=== PATIENT | female | born 1945 | race Caucasian/White ===

== ENCOUNTER 2016-04-30 08:17 | Inpatient (IN) | payer MEDICARE, OTHER ==
--- NOTE | 2016-04-29 10:22 | HP ---
DATE OF CLINIC: 04/22/2016 ADDY VELASQUEZ : 1945 PLANNED PROCEDURE: Left Total Hip Arthroplasty DATE OF SURGERY: April 30, 2016 SURGEON: Joel Delvalle M.D. HISTORY OF PRESENT ILLNESS Addy Velasquez is a 71 year old female. * Medication list reviewed with patient allergy list reviewed with patient. * Has not tried NSAIDS * Has not tried Physical Therapy * Has not tried Injections This is a 71-year-old female referred by Dr. Gabriel for complaints of left hip pain. She states that she has had hip pain since she was about 31 years old, so for the past 40 years. It seems like it has increased over time. She does not have any acute trauma history anytime recently but she has just noticed increasing pain and mechanical symptoms to the point that she is barely able to walk with it. She uses a cane in her right hand, but is now concerned because she is starting to feel some symptoms of right hip and it feels like she is not going to be able to walk if she does not something about it. She localizes the pain deep in the groin crease on the left side. It is worse with weight bearing or changes in position. She is unable to take anti-inflammatories medications because of some chronic kidney disease. She has not had any injections. She has had no surgeries. After discussion and review of treatment options, both operative and non-operative, she has elected to proceed with surgery and presents today preoperatively. PAST MEDICAL AND SURGICAL HISTORY: Past medical history is significant for diabetes, chronic kidney disease, and other conditions as marked on her intake form. CURRENT MEDICATION * Allopurinol 100 MG Tablet TAKE 1 TABLET BY MOUTH EVERY DAY, 90 days, 3 refills * Aspirin 81 MG TABS, once a day 0 days, 0 refills * BD Insulin Syringe Ultrafine 30G X 1/2" 0.5 ML MISC, 1 twice a day 30 days, 3 refills * Diltiazem HCl ER Beads 240 MG Capsule Extended Release 24 Hour TAKE ONE CAPSULE BY MOUTH EVERY DAY, 90 days, 2 refills * Furosemide 20 MG Tablet TAKE ONE-HALF TO ONE TABLET BY MOUTH DAILY FOR 2-3 DAYS FOR OCCASIONAL SWELLING (DON'T TAKE LONGER THAN 1 WEEK IN A ROW), 90 days, 0 refills * HumuLIN 70/30 (70-30) 100 UNIT/ML Suspension INJECT 15 UNITS EVERY MORNING AND 2 UNITS EVERY EVENING, DIRECTED, 28 days, 4 refills * Klor-Con M20 20 MEQ Tablet Extended Release Take every other day, 90 days, 2 refills * Levothyroxine Sodium 200 MCG Tablet 1 once a day, 90 days, 2 refills * Lisinopril 40 MG TABS, 1 once a day TAKE ONE TABLET BY MOUTH EVERY MORNING, 90 days, 1 refills * Lisinopril 40 MG Tablet TAKE ONE TABLET BY MOUTH EVERY MORNING, 90 days, 2 refills * Metoprolol Succinate ER 50 MG Tablet, extended-release 24 hour TB24, TAKE ONE TABLET BY MOUTH EVERY DAY, 90 days, 2 refills * Ranitidine HCl 150 MG Tablet 1 twice a day, 90 days, 2 refills * TraMADol HCl 50 MG Tablet 1-2T po TID, 30 days, 0 refills PAST MEDICAL/SURGICAL HISTORY Reported: Last pap smear date hysterectomy, Last mammogram date: 2005 or 2006, and Last colonoscopy date: never had one. Medical: A previous fracture Left foot - farm accident, cancer thyroid, Reported numbness Left leg, cardiac history A-Fib 2003, Diabetes Mellitus DX 1998, history of Arthritis Hands, Left hip, Left knee, Right ankle, Right wrist, Thyroid Disorder, Gout 2009- no recent issues, Hypertension, and Osteoporosis spine. Surgical / Procedural: Eye Surgery Cataract 2014. 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 Behavioral: Caffeine use, non-smoker quit smoking, and quit smoking 1983 smoked 1 pack per day for 19 yrs. Smoking status: Former smoker. Home Environment: Lives with spouse. Work: Retired. ALLERGIES * Codeine Derivatives Reaction: Nausea/Vomiting/Diarrhea * GlipiZIDE * Tomatoes FAMILY HISTORY 3 children living Colon cancer Mother 2 cousins Breast cancer Mother Cousin Ovarian cancer Aunt Family medical history Mother- Heart Disease, Stroke, Diabetes, OA, Cancer, Hypertension Father- Heart Disease, Stroke, Diabetes, OA, Hypertension, Depression, RA Sister- OA, Hypertension REVIEW OF SYSTEMS No recent constitutional symptoms to include fevers and chills. No recent cardiovascular symptoms to include chest pain or palpitations. No recent respiratory symptoms to include shortness of breath or recent infections. PHYSICAL FINDINGS * Vitals taken 04/22/2016 03:01 pm BP-Sitting L 148/70 mmHg BP Cuff Size Regular Pulse Rate-Sitting 54 bpm Temp-Oral 98.7 F Height 64.5 in Weight 187 lbs Body Mass Index 31.6 kg/m2 Body Surface Area 1.91 m2 Pain Level 6 Ears, Nose, Throat: * ENT: normal. Lungs: * Clear to auscultation. Cardiovascular: Heart Rate and Rhythm: * Normal. Abdomen: * Normal. Neurological: Motor: * Dominant Hand = Right Hand. Patient is a well-developed, well-nourished female in no acute distress. They are awake, alert and conversant throughout the encounter. CARDIOVASCULAR: Intact peripheral pulses on bilateral lower extremities. No significant edema on inspection of bilateral lower extremities. NEUROLOGIC: Patient had intact coordinated composite motion of the bilateral lower extremities and sensation intact to light touch in all distributions of bilateral lower extremities. PSYCHIATRIC: Patient was oriented to person, place and time and displayed appropriate mood and affect during the encounter. SKIN: Exam of the skin on bilateral lower extremities showed no significant scars, lesions, rashes or masses. FOCUSED MUSCULOSKELETAL EXAM: The patient has a significantly abnormal gait. She has got both Trendelenburg lurch and significant antalgia when she puts weight on to her left leg. She has minimal swing through with the left leg. She has a flexion contracture of approximately 10 degrees and she can only flex up to about 70 degrees. She has significant pain in the groin crease with either of these motions. She has essentially no internal or external rotation and no significant abduction from neutral without a significant increase in her pain. She is non-tender over the greater trochanter. She is unable to do a straight leg raise. She has a warm and well perfused leg distally with intact sensation normal resting tone. IMAGING: A review of her x-rays shows a significant degenerative arthritis of the left hip with sclerosis and subchondral cyst formation of both the femoral head and acetabular roof. She does not appear to have a large uncontained defect. ASSESSMENT A 70-year-old female with end stage left hip osteoarthritis. PREVIOUS TESTS * Test: CBC NO DIFF Report Date: 04/16/2016 WBC 5.9 10*3/mL MCV 90.5 fL RBC 4.62 10*6/uL MCH 30.5 pg MCHC 33.7 g/dL RDW 11.9 % PLATELET COUNT 182 10*3/mL HCT 41.8 % HGB 14.1 g/L * Test: URINALYSIS WITH MICROSCOPIC Report Date: 04/16/2016 EPITHELIAL CELL 0-3 WBC 0-3 GLUCOSE NEGATIVE BACTERIA FEW PH,URINE 5.0 SPEC. GRAVITY 1.015 KETONE NEGATIVE NITRITE NEGATIVE RBC 0 BLOOD NEGATIVE BILIRUBIN NEGATIVE APPEARANCE CLEAR PROTEIN NEGATIVE COLOR LIGHT YELLOW LEUK ESTERASE 1+ UROBILINOGEN NORMAL * Test: PROTHROMBIN TIME Report Date: 04/16/2016 PROTIME 10.4 s INR 0.99 * Test: PARTIAL THROMBOPLASTIN TIME Report Date: 04/16/2016 APTT 21.5 s Low * Test: COMPREHENSIVE METABOLIC PANEL Report Date: 04/16/2016 ALT/SGPT 13 U/L ALBUMIN 4.1 g/dL ALB/GLOB RATIO 1.6 BUN 38 mg/dL High BUN/CREAT RATIO 27 High CALCIUM 9.7 mg/dL GLUCOSE 181 mg/dL High CREATININE 1.4 mg/dL High SODIUM 140 meq/L POTASSIUM 4.1 meq/L CHLORIDE 103 meq/L CARBON DIOXIDE 31 meq/L ANION GAP 10 meq/L TOT PROTEIN 6.6 g/dL GLOBULIN 2.5 g/dL BILI,TOTAL 0.4 mg/dL AST/SGOT 17 U/L ALK PHOSPHATASE 45 U/L GFR 37 Low * Test: MRSA SCREEN Report Date: 04/17/2016 MRSA SCREEN NEGATIVE * Test: MSSA SCREEN Report Date: 04/17/2016 MSSA SCREEN NEGATIVE FOR STAPHYLOCOCCUS AUREUS * Test: URINE CULTURE Report Date: 04/17/2016 URINE CULTURE NO GROWTH AFTER 1 DAY THERAPY * Patient fall risk screen positive. * Patient eligible for fall risk assessment. * Patient received fall risk assessment. PLAN * OTHER OxyCONTIN 10 MG T12A, Take 1 tablet by mouth every 12 hours for baseline pain control, 10 days, 0 refills OxyCODONE HCl 5 MG TABS, Take 1-2 tablets by mouth every 4 hours as needed for severe breakthrough pain, 14 days, 0 refills TraMADol HCl 50 MG TABS, Take 1-2 tablets by mouth every 6 hours as needed for moderate breakthrough pain, 14 days, 0 refills * Total hip replacement -Left CARE TEAM Sera Gabriel MD [facility] Kostas Lee MD Internal Medicine SURGICAL CONSENT We have discussed surgical options including left FERNANDO and non-operative management. The patient was counseled in detail regarding the diagnosis, treatment options available, prognosis of each treatment option and the potential risks and complications. The risks of surgery include, but are not limited to, anesthetic , neurovascular complications, pulmonary embolism, deep vein thrombosis, wound dehiscence, failure of any or all of the discussed procedures, infection of the joint or surrounding soft tissue, need for revision surgery, chronic pain, limitations in activities of daily living, inability to return to work, and loss of normal range of motion or functional use of the extremity. There is the possibility of failure over time that may require additional operative or non-operative treatment. The patient acknowledged that there are a number of perioperative risks not mentioned here and would still like to proceed. The patient is aware of and understands these risks, and wishes to proceed with the proposed surgical procedure and other procedures as indicated at the time of surgery. We will have the patient see their PCP for a preoperative medical risk assessment. The preoperative instructions were reviewed with the patient and all questions were answered. PB/christina
[2016-04-30] MEDS ORDERED: FAMOTIDINE 20 MG TABLET PO ONE (09:45)
[2016-04-30] MEDS ORDERED: CLONIDINE HCL 0.1 MG/24 HR (7 DAY PATCH) TD SCH (09:45)
[2016-04-30] MEDS ORDERED: GABAPENTIN 600 MG TABLET PO ONE (09:45)
[2016-04-30] MEDS ORDERED: TRAMADOL HCL 50 MG TABLET PO ONE (09:45)
[2016-04-30] MEDS ORDERED: OXYCODONE HCL 10 MG TAB.SR PO ONE (09:45)
[2016-04-30] MEDS ORDERED: ONDANSETRON 4 MG/2ML 2 ML VIAL IV ONE (09:45)
[2016-04-30] MEDS ORDERED: CEFAZOLIN SODIUM 2 GRAM PREMIX 100 ML IV PRN (09:45)
[2016-04-30] MEDS ORDERED: CELECOXIB 200 MG CAPSULE PO ONE (09:45)
[2016-04-30] MEDS ORDERED: POLYMYXIN B SULFATE 500,000 UNITS, BACITRACIN 25,000 UNITS in SODIUM CHLORIDE 3 L IRRIG... IR PRN (11:50)
[2016-04-30] MEDS ORDERED: TRANEXAMIC ACID 1,000 MG in SODIUM CHLORIDE 0.9% 100 ML IV PRN (11:50)
[2016-04-30] MEDS ORDERED: BUPIVACAINE 0.25% (MDV) 20 ML in SODIUM CHLORIDE 0.9% FLUSH 20 ML IF PRN (11:50)
[2016-04-30] MEDS ORDERED: BUPIVACAINE 0.25% (MDV) 24 ML, MORPHINE SULFATE 8 MG, EPINEPHRINE 0.3 MG in SODIUM CHLO... IF PRN (11:50)
[2016-05-01] MEDS ORDERED: REMOVE PATCH 1 EACH UNIT TD SCH (09:45)
[2016-05-21] MEDS ORDERED: TRANEXAMIC ACID 1,000 MG in SODIUM CHLORIDE 0.9% 100 ML IV PRN (11:00)
[2016-05-21] MEDS ORDERED: FAMOTIDINE 20 MG TABLET PO ONE (11:00)
[2016-05-21] MEDS ORDERED: GABAPENTIN 600 MG TABLET PO ONE (11:00)
[2016-05-21] MEDS ORDERED: CLONIDINE HCL 0.1 MG/24 HR (7 DAY PATCH) TD SCH (11:00)
[2016-05-21] MEDS ORDERED: BUPIVACAINE 0.25% (MDV) 24 ML, MORPHINE SULFATE 8 MG, EPINEPHRINE 0.3 MG in SODIUM CHLO... IF PRN (11:00)
[2016-05-21] MEDS ORDERED: TRAMADOL HCL 50 MG TABLET PO ONE (11:00)
[2016-05-21] MEDS ORDERED: OXYCODONE HCL 10 MG TAB.SR PO ONE ×2 (11:00→12:22)
[2016-05-21] MEDS ORDERED: CEFAZOLIN SODIUM 2 GRAM PREMIX 100 ML IV PRN (11:00)
[2016-05-21] MEDS ORDERED: ONDANSETRON 4 MG/2ML 2 ML VIAL IV ONE (11:00)
[2016-05-21] MEDS ORDERED: BUPIVACAINE 0.25% (MDV) 20 ML in SODIUM CHLORIDE 0.9% FLUSH 20 ML IF PRN (11:00)
[2016-05-21] MEDS ORDERED: POLYMYXIN B SULFATE 500,000 UNITS, BACITRACIN 25,000 UNITS in SODIUM CHLORIDE 3 L IRRIG... IR PRN (11:00)
[2016-05-21] MEDS ORDERED: IV START KIT ONE (11:12)
[2016-05-21] MEDS ORDERED: SODIUM CHLORIDE 0.9% 1,000 ML ONE (11:13)
[2016-05-21] MEDS ORDERED: CEFAZOLIN SODIUM 2 GRAM PREMIX 100 ML IV ONE (11:13)
[2016-05-21] MEDS ORDERED: MIDAZOLAM HCL 1 MG/ML 2ML VIAL ONE (12:08)
[2016-05-21] MEDS ORDERED: PROPOFOL 20 ML IV ONE ×3 (12:08→15:33)
[2016-05-21] MEDS ORDERED: LIDOCAINE 2% (PRES FREE) 5 ML VIAL ONE (12:08)
[2016-05-21] MEDS ORDERED: TRAMADOL HCL 50 MG TABLET ONE (12:22)
[2016-05-21] MEDS ORDERED: FAMOTIDINE 20 MG TABLET ONE (12:23)
[2016-05-21] MEDS ORDERED: ONDANSETRON 4 MG/2ML 2 ML VIAL ONE ×2 (12:23→14:35)
[2016-05-21] MEDS ORDERED: GABAPENTIN 600 MG TABLET ONE (12:23)
[2016-05-21] MEDS ORDERED: CLONIDINE HCL 0.1 MG/24 HR (7 DAY PATCH) TD ONE (12:23)
[2016-05-21] MEDS ORDERED: SPINAL PROCEDURAL TRAY 1 EACH ONE (13:12)
[2016-05-21] MEDS ORDERED: SCOPOLAMINE 1.5 MG/72 HR 1 EACH PATCH TD ONE (13:28)
[2016-05-21] MEDS ORDERED: DEXAMETHASONE SOD PHOS 4 MG/1 ML VIAL ONE (14:35)
[2016-05-21] MEDS ORDERED: FAMOTIDINE 10 MG/ML 2ML VIAL ONE (14:35)
[2016-05-21] MEDS ORDERED: NALOXONE HCL 0.4 MG/ML VIAL IV PRN (14:43)
[2016-05-21] MEDS ORDERED: MEPERIDINE 25 MG/ML SYRINGE IV PRN (14:43)
[2016-05-21] MEDS ORDERED: ONDANSETRON 4 MG/2ML 2 ML VIAL IV PRN ×2 (14:43→20:00)
[2016-05-21] MEDS ORDERED: ATROPINE SULFATE 0.4 MG/1 ML VIAL IV PRN (14:43)
[2016-05-21] MEDS ORDERED: HYDROMORPHONE HCL 1 MG/ML SYRINGE IV PRN (14:43)
[2016-05-21] MEDS ORDERED: PROMETHAZINE HCL 25 MG/ML VIAL IM PRN (14:43)
[2016-05-21] MEDS ORDERED: FENTANYL 100 MCG/2 ML VIAL IV PRN (14:43)
[2016-05-21] MEDS ORDERED: LACTATED RINGERS 1,000 ML IV SCH (14:45)
[2016-05-21] MEDS ORDERED: ON-Q PUMP/ROPIVACAINE 0.2% 0 ML ONE (15:56)
--- NOTE | 2016-05-21 16:09 | PCMBPN ---
Brief Post Op Note: Date of Procedure: 05/21/16 Start Time: 1400 Preoperative Diagnosis: 1. left hip osteoarthritis Postoperative Diagnosis: 1. Same Procedure: left total hip arthroplasty Surgeon: Joel Delvalle MD Assist: Nolan Phoenix PA-C Anesthesia: Zina Yap Findings: as above Condition: stable to PACU Complications: none IV Fluids: 1600 mLs of LR Urine Output: 200 mLs Estimated Blood Loss: 150 mLs Tourniquet Time: none Specimens: none Implants: DePuy [place] Cup, 52mm; Trilock stem, std offset, Size 4; 36 mm + 15.5 CoCr head; neutral 36/52 UHMWPE liner Drains: none Joel Delvalle MD
[2016-05-21] MEDS ORDERED: FENTANYL 100 MCG/2 ML VIAL ONE (16:19)
[2016-05-21] MEDS ORDERED: GLYCOPYRROLATE 0.2 MG/ML 1ML VIAL IV PRN (16:30)
[2016-05-21] MEDS ORDERED: PROMETHAZINE HCL 25 MG/ML VIAL ONE (16:37)
[2016-05-21] MEDS ORDERED: MEPERIDINE 25 MG/ML SYRINGE ONE (16:46)
--- NOTE | 2016-05-21 16:49 | RAD ---
PELVIS HISTORY: Postop left FERNANDO COMPARISONS: 02/29/2016 FINDINGS: Single AP view of the pelvis demonstrates left total hip arthroplasty changes. Hardware is intact without signs of failure or loosening on this single projection. No fracture or dislocation. Postoperative skin nirav and gas are also present. IMPRESSION: Satisfactory postoperative exam.
[2016-05-21] MEDS ORDERED: OXYCODONE HCL 5 MG TABLET PO PRN (17:04)
[2016-05-21] MEDS ORDERED: HYDROXYZINE PAMOATE 25 MG CAPSULE PO PRN (17:04)
[2016-05-21] MEDS ORDERED: CALCIUM CARBONATE 500 MG TAB.CHEW PO PRN (17:04)
[2016-05-21] MEDS ORDERED: HYDROMORPHONE HCL 0.5 MG/0.5 ML SYRINGE IV PRN (17:04)
[2016-05-21] MEDS ORDERED: TRAZODONE HCL 50 MG TABLET PO PRN (17:04)
[2016-05-21] MEDS ORDERED: PUMP TUBING ONE (18:09)
[2016-05-21] MEDS: LACTATED RINGERS 1,000 ML IV SCH (19:00)
--- NOTE | 2016-05-21 21:14 | CONS ---
Annmarie Velasquez [id number] : 1945 DATE OF ADMISSION: 05/21/2016 DATE OF CONSULTATION: 05/21/2016 PRIMARY CARE PROVIDER: Dr. Gabriel. CONSULTATION REQUESTED BY: Dr. Delvalle. REASON FOR CONSULTATION: Perioperative medical management of diabetes, hypertension, and hypothyroidism. HISTORY OF PRESENT ILLNESS: Ms. Velasquez is a 71-year-old with at least a 40 year history of osteoarthritis. She consulted with Dr. Delvalle and presented today for planned left total hip arthroplasty. She had uneventful surgery. No complications were noted. Estimated blood loss was 150 mL. No drains were left in place. She was seen on the med/surg floor late in the evening postoperatively. She is quite somnolent, but does rouse and denies any symptoms as long as she is laying still. With movement she does have some left hip pain. She does not have any shortness of breath, chest pain, nausea, or pruritus. PREOPERATIVE REVIEW OF SYSTEMS: No upper respiratory or lower respiratory symptoms. No gastrointestinal symptoms. No genitourinary symptoms. PAST MEDICAL HISTORY: 1. Diabetes mellitus type 2 with snf insulin use. 2. Chronic kidney disease stage III secondary to diabetes. 3. Hypothyroidism status post thyroidectomy for thyroid cancer. 4. Hypertension. 5. Paroxysmal atrial fibrillation. She is usually kept in sinus rhythm on beta namrata and calcium channel namrata. She is not on chronic anticoagulation. 6. Gout. 7. Obesity with body mass index of 31.8. 8. Osteoarthritis. PAST SURGICAL HISTORY: 1. Thyroidectomy. 2. Hysterectomy in 1976. 3. Removal of a benign thigh lesion in 2013. 4. Bilateral cataracts. 5. Excision of tailbone fragments. 6. Left total hip arthroplasty today. ALLERGIES: REPORTED TO GLIPIZIDE, CODEINE, GLUCOSAMINE, AND TOMATO. HOME MEDICATIONS: 1. Allopurinol 100 mg by mouth daily. 2. Aspirin 81 mg by mouth daily. 3. Colchicine 0.6 mg by mouth as needed. 4. Diltiazem ER 240 mg by mouth daily. 5. Furosemide 20 mg by mouth daily. 6. Insulin 70/30 twenty units in the morning and 15 units in the evening. 7. Levothyroxine 200 mcg by mouth daily. 8. Lisinopril 40 mg by mouth daily. 9. Metoprolol succinate 50 mg by mouth daily. 10. Potassium chloride 20 mEq by mouth daily. 11. Ranitidine 150 mg by mouth as needed. 12. Vitamin D3, 2000 international units by mouth daily. HABITS: She is a former smoker with a 19 pack year history, quit in 1983. No alcohol or other drugs. SOCIAL HISTORY: She is retired and lives with her in [place]. FAMILY HISTORY: Positive for diabetes, chronic kidney disease, atrial fibrillation, and thyroid disorders. PHYSICAL EXAMINATION: GENERAL: This is a sleepy, but arousable elderly woman. She is not in any acute distress. VITAL SIGNS: Temperature is 97.5 degrees Fahrenheit, pulse 56, blood pressure 104/51, respiratory rate 16, oxygen saturation 95% on 2 liters of oxygen by nasal cannula. HEENT: Pupils are constricted, equal, round, and reactive. Extraocular muscles intact. She does have artificial lenses present. Orophyarnx is moist. CHEST: Clear to auscultation. HEART: Regular with 2/6 systolic murmur. ABDOMEN: Obese, soft, nontender, normal bowel tones. No organomegaly. EXTREMITIES: Dressing on the left hip is clean and dry. She has moderate posterior tibial pulses. No cyanosis, clubbing, or edema. NEUROLOGIC: Somnolent, but no focal deficits. PREOPERATIVE LABORATORIES: On May 05, CBC was within normal limits, Coags were within normal limits, chemistry profile, sodium 141, potassium 4.0, chloride 105, CO2 27, BUN 42, creatinine 1.3, glucose 138. Urinalysis was contaminated with many epithelial cells, screening for methicillin resistant Staph aureus was negative. ASSESSMENT: Ms. Velasquez is a 71-year-old status post left total hip arthroplasty. She has underlying diabetes mellitus type 2 with chronic kidney disease stage III, hypothyroidism, obesity, and gout, as well as paroxysmal atrial fibrillation. RECOMMENDATIONS: 1. Postoperative care per orthopedics. 2. Continue usual insulin therapy. 3. Check blood sugars morning and evening and cover with additional insulin as needed. 4. Parameters for antihypertensive medications should she continue to have postoperative hypotension. 5. Continue thyroid replacement and preventative treatment for gout. Thank you Dr. Delvalle for this consultation. The hospitalist service will follow. JOB: [id number]
[2016-05-21] MEDS: CEFAZOLIN SODIUM 1 GRAM PREMIX 1 G in Premix (D5W) 50 ml 1 EACH IV SCH (23:41)
[2016-05-21] MEDS: FAMOTIDINE 20 MG TABLET PO SCH (23:43)
[2016-05-21] MEDS: ASCORBIC ACID 500 MG TABLET PO SCH (23:43)
[2016-05-21] MEDS: OXYCODONE HCL 10 MG TAB.SR PO SCH (23:43)
[2016-05-21] MEDS: DOCUSATE SODIUM 100 MG CAPSULE PO SCH (23:44)
[2016-05-21] MEDS: INSULIN HUMAN NPH 70/REG 30 100 UNITS/1 ML UNIT (D0SE) SUB-Q SCH (23:44)
[2016-05-21] MEDS: LEVOTHYROXINE SODIUM 200 MCG TABLET PO SCH (23:44)
[2016-05-21] MEDS: ACETAMINOPHEN 500 MG TABLET PO SCH (23:44)
[2016-05-21] MEDS: METOPROLOL SUCCINATE (XL) 50 MG TAB.PRT.SR PO SCH (23:49)
[2016-05-22] MEDS: LACTATED RINGERS 1,000 ML IV SCH (04:30)
[2016-05-22 06:04] LABS: HEMATOCRIT 34.5 % (37.0-47.0); HEMOGLOBIN 11.6 gm/l (12.0-16.0); MEAN CORPUSCULAR HEMOGLOBIN 31.3 pg (27.0-31.0); MEAN CORPUSCULAR HGB CONC 33.6 g/dl (33.0-37.0); RED CELL DISTRIBUTION WIDTH 11.9 % (11.5-14.5)
[2016-05-22 06:33] LABS: CALCIUM 8.7 mg/dL (8.6-10.3)
[2016-05-22] MEDS: ACETAMINOPHEN 500 MG TABLET PO SCH ×5 (06:35→23:07)
[2016-05-22] MEDS: CEFAZOLIN SODIUM 1 GRAM PREMIX 1 G in Premix (D5W) 50 ml 1 EACH IV SCH (07:15)
--- NOTE | 2016-05-22 07:28 | PDOC43 ---
- Subjective Findings: Patient sleeping comfortably this morning, arousable, denies significant pain or other complaints. Subjective: Reports Pain Tolerable, Denies Chest Pain, Denies Shortness of Breath, Denies Nausea, Denies Vomiting - Objective Vital Signs Temperature 97.7 F 05/22/16 03:39 Pulse Rate 80 05/22/16 03:39 Respiratory Rate 16 05/22/16 03:39 Blood Pressure 140/69 05/22/16 03:39 O2 Saturation by Pulse Oximetry 97 05/22/16 03:39 Oxygen Delivery Method Nasal Cannula Oxygen Flow Rate 2 Laboratory 05/22/16 05:30 05/22/16 05:30 05/22/16 05/21/16 05/21/16 05:30 21:19 16:32 RBC 3.71 L MCH 31.3 H BUN 30 H Estimated GFR 44 L POC Capillary Glucose 165 H 151 H 05/21/16 12:07 RBC MCH BUN Estimated GFR POC Capillary Glucose 118 H Active Medication Orders Category Date Time Status Acetaminophen [Tylenol] Med 05/21/16 17:04 Active 1,000 mg PO Q6H Allopurinol [Zyloprim] Med 05/22/16 12:00 Active 100 mg PO 1200 Ascorbic Acid [Vitamin C] Med 05/21/16 21:00 Active 500 mg PO BID Aspirin (Enteric Coated) [Ecotrin] Med 05/22/16 09:00 Active 325 mg PO DAILY Bisacodyl [Dulcolax] Med 05/24/16 15:50 Active 10 mg ME DAILY PRN Calcium Carbonate [Tums] Med 05/21/16 17:04 Active 1,000 - 2,000 mg PO Q2H PRN Diltiazem HCl Cd [Cardizem Cd] Med 05/22/16 12:00 Active 240 mg PO 1200 Docusate Sodium [Colace] Med 05/21/16 21:00 Active 100 mg PO BID Famotidine [Pepcid] Med 05/21/16 21:00 Active 20 mg PO BEDTIME Furosemide [Lasix] Med 05/22/16 09:00 Active 20 mg PO QAM Glycopyrrolate [Robinul] Med 05/21/16 16:30 Active 0.4 mg IV X1 PRN Hydromorphone HCl [Dilaudid] Med 05/21/16 17:04 Active 0.5 mg IV Q1H PRN Hydroxyzine Pamoate [Vistaril] Med 05/21/16 17:04 Active 25 - 50 mg PO Q4H PRN Insulin Aspart (Dose) [Novolog (Dose)] Med 05/21/16 19:22 Active See Protocol SUB-Q WM/BEDTIME PRN Insulin Human NPH 70/30 Dose [Novolin/Humulin 70/30 Med 05/21/16 20:00 Active Dose] 15 units SUB-Q QPM Insulin Human NPH 70/30 Dose [Novolin/Humulin 70/30 Med 05/22/16 09:00 Active Dose] 20 units SUB-Q QAM Lactated Ringers 1,000 ml Med 05/21/16 17:04 Active IV 100 mls/hr Levothyroxine Sodium [Levothroid] Med 05/21/16 20:00 Active 200 mcg PO QPM Lisinopril [Prinivil] Med 05/22/16 09:00 Active 40 mg PO QAM Magnesium Hydroxide [Milk of Magnesia] Med 05/22/16 15:50 Active 30 ml PO DAILY PRN Metoprolol Succinate (Xl) [Toprol Xl] Med 05/21/16 20:00 Active 50 mg PO QPM Multivitamins [One-A-Day] Med 05/22/16 09:00 Active 1 tab PO DAILY Ondansetron 4 mg/2ml Vial [Zofran] Med 05/21/16 20:00 Active 4 - 6 mg IV Q6H PRN Oxycodone HCl [Roxicodone] Med 05/21/16 17:04 Active 5 - 10 mg PO Q4H PRN Oxycodone Sr [Oxycontin] Med 05/21/16 21:00 Active 10 mg PO Q12HR Potassium Chloride [K-Dur] Med 05/22/16 09:00 Active 20 meq PO QAM Remove Patch Med 05/22/16 15:50 Once 1 each TD X1 ONE Sodium Chloride 0.9% Flush [Normal Saline 10ml Flush] Med 05/21/16 17:04 Active 10 - 50 ml IV PRN PRN Sodium Chloride 0.9% Flush [Normal Saline 10ml Flush] Med 05/22/16 01:00 Active 10 ml IV Q8HR Tramadol HCl [Ultram] Med 05/21/16 23:30 Active 50 mg PO Q6H PRN Trazodone HCl [Desyrel] Med 05/21/16 17:04 Active 25 mg PO BEDTIME PRN Vitamin D3 Med 05/22/16 09:00 Active 2,000 units PO DAILY Intake and Output 05/20/16 05/21/16 05/22/16 23:59 23:59 23:59 Intake Total 3142 Output Total 1350 Balance 1792 General: Afebrile, No Acute Distress HEENT: EOMI Lungs: Normal Air Movement Abdomen: Soft, No Tenderness Skin: Normal Color, Warm, Dry, Intact Neurological: Grossly Intact, Alert, Oriented x 4, Normal Speech Psych/Mental Status: Normal Affect, Normal Mood - Left Lower Extremity Incision: Dressing Clean/Dry/Intact, Well Approximated, [place] Intact, No Drainage Motor: Extensor Hallucis Longus: 5/5, Tibialis Anterior: 5/5, Gastrocnemius: 5/5 , Peroneals: 5/5, Quadriceps: 5/5 Gross Sensation to Light Touch: Present: Deep Peroneal Nerve, Superficial Peroneal Nerve, Medial Plantar Nerve, Lateral Plantar Nerve, Sural Nerve, Saphenous Nerve Capillary Refill: < 3 Seconds - Problems (1) Status post total hip replacement, left Status: AcuteAssessment/Plan: POD#1 L FERNANDO 1. Physical Therapy: up today with therapists, ambulate with assistive device per protocol 2. Pain Control: adequate on multimodal, avoiding NSAIDs due to CKD 3. DVT Prophylaxis: mechanical / ambulation / ASA 325 daily 4. Disposition: home today vs tomorrow when clears PT 5. Medical Issues: on home meds, stable, appreciate hospitalist assistance Joel Delvalle MD
--- NOTE | 2016-05-22 08:03 | PDOC43 ---
- Subjective Chief Complaint: s/p LTK arthroplasty 05/[address] Delvalle. No chest pain or dyspnea. Some left hip pain with movement. - Objective Vital Signs Temperature 98.2 F 05/22/16 07:33 Pulse Rate 69 05/22/16 07:33 Respiratory Rate 17 05/22/16 07:33 Blood Pressure 152/57 05/22/16 07:33 O2 Saturation by Pulse Oximetry 97 05/22/16 07:33 Oxygen Delivery Method Nasal Cannula Oxygen Flow Rate 2 Intake and Output 05/21/16 05/22/16 05/23/16 06:59 06:59 06:59 Intake Total 3142 Output Total 1350 Balance 1792 General: Alert, Oriented x3, Cooperative, No Acute Distress HEENT: Mucous membr. moist/pink Lungs: Clear to Auscultation Bilaterally Cardiovascular: Regular Rate and Rhythm, Murmur (2/6) Abdomen: Soft, Normal Bowel Sounds, No Tenderness, No Masses Extremities: Normal Pulses, No Edema Wound: Dressing Clean/Dry/Intact (on left hip) Neurological: Normal Speech Psych/Mental Status: Normal Mood Laboratory 05/22/16 05:30 05/22/16 05:30 05/22/16 05/21/16 05/21/16 05:30 21:19 16:32 RBC 3.71 L MCH 31.3 H BUN 30 H Estimated GFR 44 L POC Capillary Glucose 165 H 151 H 05/21/16 12:07 RBC MCH BUN Estimated GFR POC Capillary Glucose 118 H Current Medications: Current meds reviewed in EMR. - Problems: Assessment/Plan (1) Status post total hip replacement, left Status: AcuteAssessment/Plan: management per Dr. Delvalle, doing well. (2) CKD (chronic kidney disease) stage 3, GFR 30-59 ml/min Status: ChronicAssessment/Plan: stable, creatinine at baseline. (3) Diabetes type 2, controlled Qualifiers: Diabetes mellitus complication status: with kidney complications Diabetes mellitus complication detail: with chronic kidney disease Chronic kidney disease stage: stage 3 (moderate) Status: ChronicAssessment/Plan: BG well controlled. (4) Gout Qualifiers: Gout site: unspecified site Gout etiology: due to renal impairment Chronicity: chronic Presence of tophus: without tophus Qualifier Code: ( [id number]) Chronic gout due to renal impairment, unspecified site, without tophus (tophi) Status: ChronicAssessment/Plan: stable, continue allopurinol (5) HTN (hypertension), benign Status: ChronicAssessment/Plan: continue usual meds (6) Hypothyroidism Qualifiers: Hypothyroidism type: postoperative Qualifier Code: (E89.0) Postprocedural hypothyroidism Status: ChronicAssessment/Plan: On suppressive replacement therapy post thyroidectomy for cancer (7) Obesity (BMI 30.0-34.9) Status: ChronicAssessment/Plan: complicates care for surgery, DM (8) Acute blood loss anemia Status: AcuteAssessment/Plan: due to surgery, mild, asymptomatic (9) A-fib Qualifiers: Atrial fibrillation type: paroxysmal Qualifier Code: (I48.0) Paroxysmal atrial fibrillation Status: ChronicAssessment/Plan: Hx of paroxismal A fib, currently in SR and rate controlled on metoprolol and diltiazem, not on chronic anticoagulation. VTE Prophylaxis: ASA and mechanical Disposition: home today or tomorrow per PT and Dr. Delvalle
[2016-05-22] MEDS ORDERED: ASPIRIN (ENTERIC COATED) 81 MG TABLET.EC PO SCH (09:00)
[2016-05-22] MEDS: INSULIN ASPART (DOSE) 100 UNITS/1 ML SUB-Q PRN ×3 (09:01→18:04)
[2016-05-22] MEDS: INSULIN HUMAN NPH 70/REG 30 100 UNITS/1 ML UNIT (D0SE) SUB-Q SCH ×2 (09:01→20:20)
[2016-05-22] MEDS: VITAMIN D3 1,000 UNITS CAP.LIQ PO SCH (09:02)
[2016-05-22] MEDS: POTASSIUM CHLORIDE 20 MEQ TAB.PRT.SR PO SCH (09:02)
[2016-05-22] MEDS: TRAMADOL HCL 50 MG TABLET PO PRN ×3 (09:02→23:10)
[2016-05-22] MEDS: OXYCODONE HCL 10 MG TAB.SR PO SCH ×2 (09:02→20:21)
[2016-05-22] MEDS: ASCORBIC ACID 500 MG TABLET PO SCH ×2 (09:02→20:20)
[2016-05-22] MEDS: DOCUSATE SODIUM 100 MG CAPSULE PO SCH ×2 (09:03→20:21)
[2016-05-22] MEDS: LISINOPRIL 20 MG TABLET PO SCH (09:03)
[2016-05-22] MEDS: ASPIRIN (ENTERIC COATED) 325 MG TABLET.EC PO SCH (09:04)
[2016-05-22] MEDS: FUROSEMIDE 20 MG TABLET PO SCH (09:04)
[2016-05-22] MEDS: MULTIVITAMINS 1 TAB TABLET PO SCH (09:04)
[2016-05-22] MEDS ORDERED: REMOVE PATCH 1 EACH UNIT TD SCH (11:00)
[2016-05-22] MEDS: DILTIAZEM HCL CD 240 MG CAPSULE PO SCH (12:20)
[2016-05-22] MEDS: ALLOPURINOL 100 MG TABLET PO SCH (12:20)
[2016-05-22] MEDS ORDERED: REMOVE PATCH 1 EACH UNIT TD ONE (15:50)
[2016-05-22] MEDS ORDERED: MAGNESIUM HYDROXIDE 30 ML UDCUP PO PRN (15:50)
[2016-05-22] MEDS: LEVOTHYROXINE SODIUM 200 MCG TABLET PO SCH (20:20)
[2016-05-22] MEDS: FAMOTIDINE 20 MG TABLET PO SCH (20:20)
[2016-05-22] MEDS: METOPROLOL SUCCINATE (XL) 50 MG TAB.PRT.SR PO SCH (22:21)
[2016-05-23 05:51] LABS: HEMATOCRIT 31.9 % (37.0-47.0); HEMOGLOBIN 10.5 gm/l (12.0-16.0)
[2016-05-23] MEDS: ACETAMINOPHEN 500 MG TABLET PO SCH ×2 (06:26→10:31)
[2016-05-23] MEDS: INSULIN HUMAN NPH 70/REG 30 100 UNITS/1 ML UNIT (D0SE) SUB-Q SCH (08:37)
[2016-05-23] MEDS: INSULIN ASPART (DOSE) 100 UNITS/1 ML SUB-Q PRN (08:38)
--- NOTE | 2016-05-23 10:15 | PDOC43 ---
- Subjective Subjective: Reports Pain Tolerable, Denies Flatus, Denies Chest Pain, Denies Shortness of Breath, Denies Nausea, Denies Vomiting, Denies Fever - Objective Vital Signs Temperature 98.0 F 05/23/16 08:22 Pulse Rate 66 05/23/16 08:22 Respiratory Rate 20 05/23/16 08:22 Blood Pressure 118/46 05/23/16 08:22 O2 Saturation by Pulse Oximetry 90 05/23/16 08:22 Oxygen Delivery Method Room Air Oxygen Flow Rate 0 Laboratory 05/23/16 05:30 05/22/16 05:30 05/23/16 05/23/16 05/22/16 08:22 01:06 20:18 POC Capillary Glucose 156 H 169 H 210 H 05/22/16 05/22/16 17:22 12:30 POC Capillary Glucose 169 H 219 H Active Medication Orders Category Date Time Status Acetaminophen [Tylenol] Med 05/21/16 17:04 Active 1,000 mg PO Q6H Allopurinol [Zyloprim] Med 05/22/16 12:00 Active 100 mg PO 1200 Ascorbic Acid [Vitamin C] Med 05/21/16 21:00 Active 500 mg PO BID Aspirin (Enteric Coated) [Ecotrin] Med 05/22/16 09:00 Active 325 mg PO DAILY Bisacodyl [Dulcolax] Med 05/24/16 15:50 Active 10 mg [place] DAILY PRN Calcium Carbonate [Tums] Med 05/21/16 17:04 Active 1,000 - 2,000 mg PO Q2H PRN Diltiazem HCl Cd [Cardizem Cd] Med 05/22/16 12:00 Active 240 mg PO 1200 Docusate Sodium [Colace] Med 05/21/16 21:00 Active 100 mg PO BID Famotidine [Pepcid] Med 05/21/16 21:00 Active 20 mg PO BEDTIME Furosemide [Lasix] Med 05/22/16 09:00 Active 20 mg PO QAM Glycopyrrolate [Robinul] Med 05/21/16 16:30 Active 0.4 mg IV X1 PRN Hydromorphone HCl [Dilaudid] Med 05/21/16 17:04 Active 0.5 mg IV Q1H PRN Hydroxyzine Pamoate [Vistaril] Med 05/21/16 17:04 Active 25 - 50 mg PO Q4H PRN Insulin Aspart (Dose) [Novolog (Dose)] Med 05/21/16 19:22 Active See Protocol SUB-Q WM/BEDTIME PRN Insulin Human NPH 70/30 Dose [Novolin/Humulin 70/30 Med 05/21/16 20:00 Active Dose] 15 units SUB-Q QPM Insulin Human NPH 70/30 Dose [Novolin/Humulin 70/30 Med 05/22/16 09:00 Active Dose] 20 units SUB-Q QAM Levothyroxine Sodium [Levothroid] Med 05/21/16 20:00 Active 200 mcg PO QPM Lisinopril [Prinivil] Med 05/22/16 09:00 Active 40 mg PO QAM Magnesium Hydroxide [Milk of Magnesia] Med 05/22/16 15:50 Active 30 ml PO DAILY PRN Metoprolol Succinate (Xl) [Toprol Xl] Med 05/21/16 20:00 Active 50 mg PO QPM Multivitamins [One-A-Day] Med 05/22/16 09:00 Active 1 tab PO DAILY Ondansetron 4 mg/2ml Vial [Zofran] Med 05/21/16 20:00 Active 4 - 6 mg IV Q6H PRN Oxycodone HCl [Roxicodone] Med 05/21/16 17:04 Active 5 - 10 mg PO Q4H PRN Oxycodone Sr [Oxycontin] Med 05/21/16 21:00 Active 10 mg PO Q12HR Potassium Chloride [K-Dur] Med 05/22/16 09:00 Active 20 meq PO QAM Sodium Chloride 0.9% Flush [Normal Saline 10ml Flush] Med 05/21/16 17:04 Active 10 - 50 ml IV PRN PRN Sodium Chloride 0.9% Flush [Normal Saline 10ml Flush] Med 05/22/16 01:00 Active 10 ml IV Q8HR Tramadol HCl [Ultram] Med 05/21/16 23:30 Active 50 mg PO Q6H PRN Trazodone HCl [Desyrel] Med 05/21/16 17:04 Active 25 mg PO BEDTIME PRN Vitamin D3 Med 05/22/16 09:00 Active 2,000 units PO DAILY Intake and Output 05/22/16 05/23/16 05/24/16 06:59 06:59 06:59 Intake Total 3142 2150 Output Total 1350 1350 Balance 1792 800 General: Afebrile, No Acute Distress Neurological: Grossly Intact, Alert, Oriented x 4 Psych/Mental Status: Normal Affect, Normal Mood Peripheral Pulses: Left Posterior Tibialis: 3+/4+, Left Dorsalis Pedis: 3+/4+ - Left Lower Extremity Incision: Dressing Clean/Dry/Intact (Some left hip pain with passive internal rotation. Hip stable.), Well Approximated, [place] Intact Motor: Extensor Hallucis Longus: 5/5, Tibialis Anterior: 5/5, Gastrocnemius: 5/5 , Peroneals: 4/5, Quadriceps: 4/5 Gross Sensation to Light Touch: Present: Medial Plantar Nerve, Lateral Plantar Nerve, Sural Nerve, Saphenous Nerve Capillary Refill: < 3 Seconds - Problems (1) Status post total hip replacement, left Status: AcuteAssessment/Plan: POD#2 L FERNANDO Pt. fell last night after getting out of bed. No new areas of pain; doing well now, working with physical therapist. 1. Physical Therapy: up today with therapists, ambulate with assistive device per protocol 2. Pain Control: adequate on multimodal 3. DVT Prophylaxis: mechanical / ambulation / ASA 325 daily 4. Disposition: home today when cleared by PT. Appointment with Dr. Delvalle for F/U. Pt has Rxs. 5. Medical Issues: on home meds, stable, appreciate hospitalist assistance Edward Pearson,
[2016-05-23] MEDS: LISINOPRIL 20 MG TABLET PO SCH (10:28)
[2016-05-23] MEDS: VITAMIN D3 1,000 UNITS CAP.LIQ PO SCH (10:29)
[2016-05-23] MEDS: MULTIVITAMINS 1 TAB TABLET PO SCH (10:31)
[2016-05-23] MEDS: OXYCODONE HCL 10 MG TAB.SR PO SCH (10:33)
[2016-05-23] MEDS: ASPIRIN (ENTERIC COATED) 325 MG TABLET.EC PO SCH (10:33)
[2016-05-23] MEDS: DOCUSATE SODIUM 100 MG CAPSULE PO SCH (10:33)
[2016-05-23] MEDS: ASCORBIC ACID 500 MG TABLET PO SCH (10:34)
[2016-05-23] MEDS: POTASSIUM CHLORIDE 20 MEQ TAB.PRT.SR PO SCH (10:34)
[2016-05-23] MEDS: FUROSEMIDE 20 MG TABLET PO SCH (10:35)
--- NOTE | 2016-05-23 10:56 | OP ---
Annmarie ESCOBAR : 1945 [id number] DATE OF SERVICE: May 21, 2016 PREOPERATIVE DIAGNOSIS: Left hip osteoarthritis. POSTOPERATIVE DIAGNOSIS: Left hip osteoarthritis. PROCEDURE PERFORMED: LEFT TOTAL HIP ARTHROPLASTY. SURGEON: Joel Delvalle M.D. FUNERAL SERVICE APPRENTICE: Darren Phoenix P.A.-C. ANESTHESIA: Zina Yap, C.R.N.A. SPECIMENS: No material was sent to the laboratory. ESTIMATED BLOOD LOSS: 150 mL. FLUIDS REPLACED: 1600 mL of crystalloid. URINE OUTPUT: 200 mL. TOURNIQUET: None. IMPLANTS: DePuy [place] size 52 cup, size 4 DePuy TriLock stem standard offset, 36 mm +15.5 cobalt chrome head, and a 36/52 xrarl-vwmo-lidldvphw-weight polyethylene liner. INDICATIONS: Patient is a 71-year-old female with long-standing left hip osteoarthritis which has failed to respond to a course of nonoperative measures. Patient has exam and radiographic findings, which support this diagnosis. In order to restore patient's ability to participate in desired level of activities they were offered a total hip arthroplasty. The risks, benefits and alternatives of therapy were discussed with the patient at length and they elected to proceed with surgery. The patient underwent preoperative clearances. Informed consent was obtained and documented in the chart and the patient was placed on the schedule at the first available convenience. DESCRIPTION OF PROCEDURE: The patient was identified in the pre-operative holding area where they were marked with an indelible marker by the operating surgeon. Patient was taken to the operating room where they underwent a spinal anesthetic and then was positioned on the right side using a pegboard for intraoperative positioning. An axillary roll was placed and all bony prominences were padded. The patient was prepped and draped in the usual sterile fashion for surgery and received perioperative antibiotics and tranexamic acid. A final operative time out was performed and confirmed by all members of the operative team. A standard posterior approach to the hip was used with dissection carried down to the fascia overlying the greater trochanter. The fascia was divided and a Charnley retractor was placed. The trochanteric bursa was excised. The sciatic nerve was identified and protected throughout the procedure. The leg was taken into internal rotation and the piriformis tendon with elevated out of the piriformis fossa and tagged for later repair and then an L-shaped arthrotomy was made dividing the capsule as far anteriorly as we could get on the neck and then taking up a posterior flap that involved the posterior capsule and the remainder of the short external rotators. At this point the hip was dislocated posteriorly and the level of our neck cut was marked out with a neck cut to guide. A neck cut was made with an oscillating saw and the head was excised. The anterior capsule was excised using a Bovie as was the entirety of the labrum and anterior and posterior and inferior retractors were placed. We started reaming with a 45 mm reamer to get medial to the true floor of the acetabulum and then reamed up to a 51 mm which gave us a good circumferential bleeding bone and appropriate fit. A 51 mm trial was placed and we were satisfied with the fit of the acetabulum. This was exchanged then for a 52 mm [place] cup with cluster holes. This was impacted in place and had excellent stability and position. Some overhanging bone in the anterior portion of the cup was excised using an osteotome and then a domed hole plug was placed and the neutral liner was impacted into the cup. At this point the anterior, posterior and inferior retractors were removed. The femoral neck elevator was placed and access to the proximal femur was obtained using a box osteotome and a canal finder. We broached up until we had good rotational and a longitudinal stability with a size 4 broach and then trialed off of that broach eventually settling on a standard offset with a 36 mm head at +15.5 neck length. This gave us excellent stability throughout. Anatomic range of motion did not show excessive tightness in extension, showed no tightness in the sciatic nerve and appropriately matched the opposite leg length. At this point all the trials were removed from the femur. The canal was copiously irrigated with a pulse lavage and the final stem was impacted into place. A 36+15.5 cobalt chrome head was then tapped on to the trunnion and the hip was reduced. Again, we were satisfied with our range of motion, leg length and stability. Three drill holes were made in the posterior, superior greater trochanter and the sutures that had been previously placed in the piriformis and the posterior capsule were used to repair these structures back to the femur. The hip was placed into a slightly abducted and externally rotated position. The Charnley retractors were removed. Everything was copiously irrigated with sterile saline and we closed the fascia with a running #0 Quill, the subcutaneous fat with a running #0 Vicryl, the subcutaneous tissues with interrupted sutures of #2-0 Vicryl and the skin with nirav. A sterile dressing of Xeroform, fluffs, ABDs and Medipore tape was applied. The drapes were removed. The patient was repositioned supine, transferred to a stretcher and taken postoperatively to the post anesthesia care unit in stable condition. There were no observed intraoperative conditions during this procedure. Job [id number] Cc: [place]
--- NOTE | 2016-05-23 11:46 | PDOC43 ---
- Subjective Chief Complaint: s/p LTK arthroplasty 05/[address] Delvalle. Non-injury fall last noc- slid to floor from chair. Feels fine this AM. Subjective: Reports Pain Tolerable, Reports Tolerating Diet Well, Reports Adequate Oral Intake, Reports Flatus, Reports Urinating Without Difficulty, Denies Shortness of Breath, Denies Cough, Denies Chest Pain, Denies Abdominal Pain, Denies Nausea, Denies Vomiting, Denies Fever, Denies Chills - Objective Vital Signs Temperature 98.0 F 05/23/16 08:22 Pulse Rate 66 05/23/16 08:22 Respiratory Rate 20 05/23/16 08:22 Blood Pressure 126/57 05/23/16 10:20 O2 Saturation by Pulse Oximetry 90 05/23/16 08:22 Oxygen Delivery Method Room Air Oxygen Flow Rate 0 Intake and Output 05/22/16 05/23/16 05/24/16 06:59 06:59 06:59 Intake Total 3142 2150 Output Total 1350 1350 Balance 1792 800 General: Alert, Oriented x3, Cooperative, No Acute Distress HEENT: Atraumatic Lungs: Clear to Auscultation Bilaterally Cardiovascular: Regular Rate and Rhythm Abdomen: Soft, Normal Bowel Sounds, Non-Distended, No Tenderness Extremities: Normal Pulses, No Edema Wound: Dressing Clean/Dry/Intact Laboratory 05/23/16 05:30 05/22/16 05:30 05/23/16 05/23/16 05/22/16 08:22 01:06 20:18 POC Capillary Glucose 156 H 169 H 210 H 05/22/16 05/22/16 17:22 12:30 POC Capillary Glucose 169 H 219 H Current Medications: Current meds reviewed in EMR. - Problems: Assessment/Plan (1) Status post total hip replacement, left Status: AcuteAssessment/Plan: management per Dr. Delvalle, doing well. (2) CKD (chronic kidney disease) stage 3, GFR 30-59 ml/min Status: ChronicAssessment/Plan: stable, creatinine at baseline. (3) Diabetes type 2, controlled Qualifiers: Diabetes mellitus complication status: with kidney complications Diabetes mellitus complication detail: with chronic kidney disease Chronic kidney disease stage: stage 3 (moderate) Status: ChronicAssessment/Plan: BG well controlled. (4) Gout Qualifiers: Gout site: unspecified site Gout etiology: due to renal impairment Chronicity: chronic Presence of tophus: without tophus Qualifier Code: ( [id number]) Chronic gout due to renal impairment, unspecified site, without tophus (tophi) Status: Chronic Priority: LowAssessment/Plan: stable, continue allopurinol (5) HTN (hypertension), benign Status: ChronicAssessment/Plan: continue usual meds (6) Hypothyroidism Qualifiers: Hypothyroidism type: postoperative Qualifier Code: (E89.0) Postprocedural hypothyroidism Status: ChronicAssessment/Plan: On suppressive replacement therapy post thyroidectomy for cancer (7) Obesity (BMI 30.0-34.9) Status: ChronicAssessment/Plan: complicates care for surgery, DM (8) Acute blood loss anemia Status: AcuteAssessment/Plan: due to surgery, mild, asymptomatic (9) A-fib Qualifiers: Atrial fibrillation type: paroxysmal Qualifier Code: (I48.0) Paroxysmal atrial fibrillation Status: ChronicAssessment/Plan: Hx of paroxismal A fib, currently in SR and rate controlled on metoprolol and diltiazem, not on chronic anticoagulation. VTE Prophylaxis: ASA and mechanical Disposition: home today or tomorrow per PT and ortho
[2016-05-23] MEDS: DILTIAZEM HCL CD 240 MG CAPSULE PO SCH (11:53)
[2016-05-23] MEDS: ALLOPURINOL 100 MG TABLET PO SCH (11:54)
[2016-05-23 14:06] VITALS: BP 108/50
[2016-05-24] MEDS ORDERED: BISACODYL 10 MG SUP PR PRN (15:50)
--- NOTE | 2016-06-23 18:21 | PDOC5 ---
ADMIT DATE: 05/21/16 DISCHARGE DATE: 05/23/16 ADMISSION DIAGNOSES: left hip osteoarthritis PROCEDURES PERFORMED THIS HOSPITALIZATION: left total hip arthroplasty SURGEON:Joel Delvalle MD CONSULTATIONS: PT/OT/Care Mgmt/Hospitalist BRIEF HISTORY:This is a 71 year old female patient with activity-limiting left hip osteoarthritis which has failed to respond adequately to a course of nonoperative measures. After a discussion of the risks, benefits, and alternatives of ongoing therapies, patient elected to proceed with left total hip arthroplasty. The patient underwent standard preoperative clearance and education, and presented to the hospital on the scheduled date for surgery. BRIEF HOSPITAL COURSE: Patient tolerated the procedure without complication and was admitted postoperatively for observation, pain control, and rehabilitation. Patient had an uncomplicated hospital course; see daily notes for details. On POD#2 patient met all criteria for discharge and was discharged home with family assistance. Follow-up appointments for outpatient Physical Therapy and Orthopedics were provided at the time of discharge. Patient restarted preoperative medications, and received prescriptions for postoperative pain medications, a stool softener, and DVT prophylaxis. Joel Delvalle MD - Discharge Diagnosis (1) Status post total hip replacement, left Status: Acute - Discharge Plan Disposition: Home Additional Instructions: PROCEDURE: Left total hip arthroplasty (replacement) 1.) Dressings: may remove dressings on POD#4 and shower normally, let water run over incision and pat dry, but do not submerge or scrub incision. Cover with clean dressing and then change dressing every day until completely dry. 2.) Activity: may bear weight as tolerated with assistive device at all times. Outpatient PT as previously scheduled. Daily exercises as instructed by PT. Posterior hip precautions at all times as instructed. 3.) Medications: a.) Oxycontin: long-acting pain medication taken morning and evening for 10 days, no refills b.) Tramadol: as-needed pain medication for mild to moderate breakthrough pain (call for refills 3-4 days before running out) c.) Oxycodone: as-needed pain medication for severe breakthrough pain (call for refills 3-4 days before running out) d.) Aspirin 325 mg (over-the counter): one tab daily for 4 weeks for prevention of blood clots e.) Colace: stool softener to help prevent constipation, taken twice a day as long as you are on narcotics; if continued constipation, get Magnesium Citrate [id number] and use per instructions every 12 hours until you have a bowel movement. 4.) Followup: You have an appointment with Nolan Phoenix PA-C, on June 02 at 2:30 PM at the [facility]. Call [phone] to confirm your appointment. 5.) Questions: call my office ([phone]) with any questions or concerns. Go to ED or call 911 for any acute changes in health status or emergencies. Joel Delvalle MD Prescriptions: Ondansetron ODT [ZOFRAN ODT 4 MG TABLET (SHF)] 4 mg PO Q4-6H PRN #20 tab.rapdis PRN Reason: Nausea/Vomiting Follow-Up: PT Sami Perdomo [Other] - 05/26/16 1:00 pm Darren Phoenix PA [Physician [employer]] - 06/02/16 2:30 pm
== END 2016-05-23 15:25 | disposition home or self-care (01) | DRG 470 ==
LOC: OR 05-21 10:48 → MS 05-21 17:32
PROVIDERS: ADMIT Orthopaedic Surgery; ATTEND Orthopaedic Surgery
PROC: 0SRB02Z Replacement of Left Hip Joint with Metal on Polyethylene Synthetic Substitute, Open Approach (ICD-10-PCS; principal; 2016-05-21)
DX: M16.12 Unilateral primary osteoarthritis, left hip (principal); Z87.891 Personal history of nicotine dependence; E05.90 Thyrotoxicosis, unspecified without thyrotoxic crisis or storm; E11.22 Type 2 diabetes mellitus with diabetic chronic kidney disease; I12.9 Hypertensive chronic kidney disease with stage 1 through stage 4 chronic kidney disease, or unspecified chronic kidney disease; N18.2 Chronic kidney disease, stage 2 (mild); Z79.4 Long term (current) use of insulin; I48.0 Paroxysmal atrial fibrillation; M10.9 Gout, unspecified; E66.9 Obesity, unspecified; Z68.31 Body mass index [BMI] 31.0-31.9, adult

== ENCOUNTER 2016-05-29 23:10 | Emergency (ER) | payer MEDICARE, OTHER | END 2016-05-30 02:03 | disposition home or self-care (01) | LOC: ED 23:10 | DX: K59.00 Constipation, unspecified (principal); E11.9 Type 2 diabetes mellitus without complications; N18.3 Chronic kidney disease, stage 3 (moderate); Z79.84 Long term (current) use of oral hypoglycemic drugs ==